=== PATIENT | male | born 1995 | race Caucasian/White ===

== ENCOUNTER 2021-04-22 23:47 | Emergency (ER) | payer BC ==
[~2021-04-22] VITALS: Ht 182.9 cm; Wt 95.7 kg
[~2021-04-22 23:47] MED LIST: VYVANSE PO
[2021-04-22 23:50] VITALS: BP_SYST 129
[2021-04-23 00:20] LABS: BILIRUBIN,URINE NEGATIVE (NEGATIVE); BLOOD, URINE 3+ (NEGATIVE); COLOR,URINE YELLOW (YELLOW); GLUCOSE,URINE NEGATIVE (NEGATIVE); KETONES,URINE NEGATIVE (NEGATIVE); LEUKOCYTE ESTERASE ,URINE 3+ (NEGATIVE); NITRITE, URINE NEGATIVE (NEGATIVE); PH,URINE 7.5 (5.0-8.0); PROTEIN URINE 1+ (NEGATIVE)
[2021-04-23 00:21] LABS: CLARITY/URINE CLOUDY (CLEAR)
[2021-04-23 00:45] LABS: BACTERIA,URINE MODERATE /HPF (None Seen); RBC,URINE 20-50 /HPF (0-3); WBC,URINE 50-80 /HPF (0-3)
[2021-04-23] MEDS ORDERED: AZITHROMYCIN 250 MG TABLET PO ONE (01:00)
[2021-04-23] MEDS ORDERED: cefTRIAXone 0.75 GM in LIDOCAINE 1%, 20 ML MDV 2.1 ML IM ONE (01:00)
[2021-04-23] MEDS ORDERED: NITR-85 PO (01:26)
[2021-04-23 01:32] VITALS: BP_SYST 128
[2021-04-24 23:06] LABS: CHLAMYDIA TRACHOMATIS NAA Negative (Negative); NEISSERIA GONORRHOEAE NAA Negative (Negative)
== END 2021-04-23 01:32 | disposition home or self-care (01) ==
LOC: SED 23:47
DX: N30.91 Cystitis, unspecified with hematuria (principal)
CPT/HCPCS: 81000; 87086; 87491; 87591; 96372; 99283; J0696; J2001; Q0144